=== PATIENT | male | born 1995 | race Caucasian/White ===

== ENCOUNTER 2017-01-04 21:06 | Emergency (ER) | payer SELFPAY ==
[~2017-01-04] VITALS: Ht 180.3 cm; Wt 65.9 kg
[~2017-01-04 21:06] MED LIST: AUVI-Q0.3 IM; CEPHALEXIN500 M1 PO; NORCO 325 MG-51 TAB PO; PHENERGAN 25 TA25 MG PO; PREDNISONE20 MG PO
[2017-01-04 21:11] VITALS: BP 145/63; TEMP 98.4
[2017-01-04] MEDS ORDERED: DOXYCYCLINE 10100 MG PO (23:39)
[2017-01-04 23:52] VITALS: PULSE 88
== END 2017-01-04 23:54 | disposition home or self-care (01) ==
LOC: COL.ER 21:06
DX: L73.9 Follicular disorder, unspecified (principal); B35.9 Dermatophytosis, unspecified

== ENCOUNTER → 2017-03-01 | Outpatient (REF) ==
[~2017-03-01] MED LIST changes: +DOXYCYCLINE 10100 MG PO
== END ==
LOC: WSOH 10:16
DX: Z02.89 Encounter for other administrative examinations (principal)

== ENCOUNTER → 2017-03-03 | Outpatient (REF) | LOC: WSOH 12:30 | DX: Z02.1 Encounter for pre-employment examination (principal) ==

== ENCOUNTER → 2017-03-05 | Outpatient (REF) | LOC: WSOH 14:51 | DX: Z02.89 Encounter for other administrative examinations (principal) ==

== ENCOUNTER → 2017-03-05 | Outpatient (REF) | LOC: WSOH 13:34 | DX: Z23 Encounter for immunization (principal) ==

== ENCOUNTER → 2017-03-10 | Outpatient (REF) | LOC: WSOH 10:50 | DX: Z00.00 Encounter for general adult medical examination without abnormal findings (principal) ==

== ENCOUNTER → 2017-04-09 | Outpatient (REF) | LOC: WSOH 13:12 | DX: Z23 Encounter for immunization (principal) ==

== ENCOUNTER → 2017-06-21 | Outpatient (REF) ==
[~2017-06-21] MED LIST changes: +ZOFRAN ODT4 MG PO
== END ==
LOC: WSOH 15:40
DX: Z02.89 Encounter for other administrative examinations (principal)

== ENCOUNTER 2017-07-06 08:52 | Emergency (ER) | payer SELFPAY ==
[~2017-07-06] VITALS: Ht 180.3 cm; Wt 65.9 kg
[~2017-07-06 08:52] MED LIST changes: -ZOFRAN ODT4 MG PO
[2017-07-06 09:00] VITALS: TEMP 98.2
[2017-07-06 09:49] LABS: BASO % 0.5 % (0.0-2.0); EOS # 0.8 (0.0-0.7); EOS % 13.4 % (0-4.0); GRAN # 2.9 (1.4-6.5); GRAN % 51.3 % (42.2-75.2); HEMATOCRIT 40.7 % (42.0-52.0); HEMOGLOBIN 14.1 g/dl (13.5-18.0); LYMPH # 1.4 (1.2-3.4); LYMPH % 24.1 % (20.0-51.0); MEAN CELL VOLUME 87 fl (80.0-100.0); MEAN CORPUSCULAR HEMOGLOBIN 30 pg (27.0-31.0); MEAN CORPUSCULAR HGB CONC 35 g/dl (33.0-37.0); MONO # 0.6 (0.1-0.6); MONO % 10.5 % (1.7-9.3); PLATELET COUNT 175 K/mm3 (130-400); REDCELL DISTRIBUTION WIDTH-CV 11.9 % (11.5-14.5); WHITE BLOOD COUNT 5.6 K/mm3 (4.8-10.8)
[2017-07-06 10:00] LABS: ADJUSTED CALCIUM 9.2 mg/dL (8.4-10.2); ALBUMIN 4.2 gm/dL (3.5-5.0); BILIRUBIN,TOTAL 0.8 mg/dL (0.0-1.0); CALCIUM 9.4 mg/dL (8.4-10.2); CREATININE, serum 0.96 mg/dL (0.66-1.25); POTASSIUM 4.5 mmol/L (3.4-5.0); TOTAL PROTEIN 6.9 gm/dL (6.4-8.2)
[2017-07-06 10:38] VITALS: BP 128/64; PULSE 80
[2017-07-08] MEDS ORDERED: ZOFRAN ODT4 MG PO (12:52)
[2017-07-08] MEDS ORDERED: NORCO 325 MG-51 TAB PO (12:52)
== END 2017-07-06 10:51 | disposition home or self-care (01) ==
LOC: COL.ER 08:52
PROVIDERS: Nurse Practitioner Primary Care
DX: R19.7 Diarrhea, unspecified (principal); R10.84 Generalized abdominal pain; F17.210 Nicotine dependence, cigarettes, uncomplicated
CPT/HCPCS: J2405; J7030

== ENCOUNTER 2018-02-15 23:37 | Emergency (ER) | payer BC ==
[~2018-02-15] VITALS: Ht 180.3 cm; Wt 65.9 kg
[~2018-02-15 23:37] MED LIST changes: +ZOFRAN ODT4 MG PO
[2018-02-15 23:47] VITALS: BP 126/71; TEMP 97.2
[2018-02-16 01:05] VITALS: PULSE 64
== END 2018-02-16 01:07 | disposition home or self-care (01) ==
LOC: COL.ER 23:37
DX: G93.1 Anoxic brain damage, not elsewhere classified (principal); R55 Syncope and collapse; F17.210 Nicotine dependence, cigarettes, uncomplicated
CPT/HCPCS: Q9967

== ENCOUNTER 2019-03-17 12:18 | Emergency (ER) | payer OTHER ==
[~2019-03-17] VITALS: Ht 180.3 cm; Wt 59.1 kg
[2019-03-17 12:46] LABS: BASO % 0.5 % (0.0-2.0); EOS # 0.3 (0.0-0.7); EOS % 4.5 % (0-4.0); GRAN # 3.1 (1.4-6.5); GRAN % 51.9 % (42.2-75.2); HEMATOCRIT 40.5 % (42.0-52.0); HEMOGLOBIN 13.8 g/dl (13.5-18.0); LYMPH # 2.1 (1.2-3.4); LYMPH % 35.4 % (20.0-51.0); MEAN CELL VOLUME 87 fl (80.0-100.0); MEAN CORPUSCULAR HEMOGLOBIN 30 pg (27.0-31.0); MEAN CORPUSCULAR HGB CONC 34 g/dl (33.0-37.0); MEAN PLATELET VOLUME 10.1 fl (7.4-10.4); MONO # 0.5 (0.1-0.6); MONO % 7.5 % (1.7-9.3); PLATELET COUNT 222 K/mm3 (130-400); RED BLOOD COUNT 4.65 M/mm3 (4.20-5.60); REDCELL DISTRIBUTION WIDTH-CV 12.3 % (11.5-14.5)
[2019-03-17 12:57] LABS: ALANINE AMINOTRANSFERASE 13 U/L (21-72); ALBUMIN 4.3 gm/dL (3.5-5.0); ALKALINE PHOSPHATASE 73 U/L (50-136); ANION GAP 10 mmol/L (7-16); AST,SGOT 30 U/L (15-37); BILIRUBIN,TOTAL 0.9 mg/dL (0.0-1.0); BLOOD UREA NITROGEN 10 mg/dL (9-20); CALCIUM 9.2 mg/dL (8.4-10.2); CARBON DIOXIDE 25 mmol/L (22-30); CHLORIDE 106 mmol/L (98-107); CREATININE, serum 0.97 (0.66-1.25); GLUCOSE 122 mg/dL (74-106); LIPASE 85 U/L (23-300); POTASSIUM 3.9 mmol/L (3.4-5.0); SODIUM 140 mmol/L (137-145); TOTAL PROTEIN 7.4 gm/dL (6.4-8.2)
[2019-03-17 12:58] LABS: C-REACTIVE PROTEIN < 0.5 mg/dL (0.0-0.9)
[2019-03-17] MEDS ORDERED: CEFTIN 250250 MG/TAB PO (14:59)
[2019-03-17] MEDS ORDERED: PERCOCET 325 MG1 TA2 PO (14:59)
[2019-03-17] MEDS ORDERED: FLOMAX 0.40.4 MG/CAP PO (14:59)
[2019-03-17] MEDS ORDERED: ZOFRAN ODT4 MG PO (14:59)
[2019-03-17 15:23] LABS: COLLECTION METHOD CLEAN CATCH
[2019-03-17 16:03] LABS: MUCOUS Present /lpf; PH 5 (5-8); SQUAMOUS EPITHELIAL 0-2 /hpf; URINE APPEARANCE Clear; URINE BACTERIA None Seen /hpf; URINE BILIRUBIN Negative (NEGATIVE); URINE BLOOD 3+ (NEGATIVE); URINE COLOR Yellow; URINE GLUCOSE Negative (NEGATIVE); URINE KETONE Negative (NEGATIVE); URINE LEUKOCYTE ESTERASE Negative (NEGATIVE); URINE NITRATE Negative (NEGATIVE); URINE PROTEIN(semi-quant) Negative (NEGATIVE); URINE RBC >50 /hpf; URINE UROBILINOGEN Negative (NEGATIVE)
[2019-03-17 16:05] VITALS: BP 119/73; PULSE 62
== END 2019-03-17 16:05 | disposition home or self-care (01) ==
LOC: COL.ER 12:18
PROVIDERS: Emergency Medicine
DX: N13.2 Hydronephrosis with renal and ureteral calculous obstruction (principal)
CPT/HCPCS: J1885; J2405; J3010; J7030; Q9967

== ENCOUNTER 2019-10-16 13:50 | Emergency (ER) | payer OTHER ==
[~2019-10-16] VITALS: Ht 180.3 cm; Wt 59.1 kg
[~2019-10-16 13:50] MED LIST changes: +CEFTIN 250250 MG/TAB PO; +FLOMAX 0.40.4 MG/CAP PO; +PERCOCET 325 MG1 TA2 PO
[2019-10-16 13:59] VITALS: BP 110/68; TEMP 98.5
[2019-10-16] MEDS ORDERED: IBU800 M1 PO (14:43)
[2019-10-16 15:54] VITALS: PULSE 68
== END 2019-10-16 15:54 | disposition home or self-care (01) ==
LOC: COL.ER 13:50
DX: J11.1 Influenza due to unidentified influenza virus with other respiratory manifestations (principal); F17.210 Nicotine dependence, cigarettes, uncomplicated; Z87.442 Personal history of urinary calculi